=== PATIENT | female | born 1960 | race Caucasian/White ===

== ENCOUNTER → 2016-11-10 | Day surgery (SDC) | payer OTHER ==
[~2016-11-10] MED LIST: ASPIRIN325 M1 PO; ASPIRIN81 M2 PO; GLYBURIDE PO; LIPITOR20 MG PO; LISINOPRIL10 MG PO; MICRONASE5 M1 PO; MULTI VITAMIN1 EACH PO; PRINIVIL10 MG PO
--- NOTE | ~2016-11-10 | OR ---
Unit #: [id number] #: [id number] Patient: RUSSELL PATTERSON [id number] [address] [place], [place] [address] [id number] MR#: [id number] NAME: RUSSELL PATTERSON. ROOM: Date of Procedure: 11/10/2016 Admission Date: 11/10/2016 Surgeon: Tirso Garvey M.D. : 1960 Attending Physician: Tirso Garvey M.D. Primary Care Physician: Ervin Burch M.D. OPERATIVE REPORT PRIMARY CARE PHYSICIAN Ervin Burch M.D. PREOPERATIVE DIAGNOSES The patient has come for surveillance colonoscopy. She had high-grade dysplasia and cecal polyp that were removed about 6 to 8 months ago. PROCEDURES PERFORMED Colonoscopy and polypectomy. POSTOPERATIVE DIAGNOSES A diminutive polyp in the rectum, which was removed using snare polypectomy. Otherwise, examination was normal all the way up to cecum and terminal ileum. The quality of the prep was excellent. The rectal polyp was removed and sent for histology. RECOMMENDATIONS Follow up the results of polyp histology and repeat colonoscopy in 5 years. SEDATION USED MAC. DESCRIPTION OF PROCEDURE Following detailed explanation of the potential risks and complications of a colonoscopy, namely perforation, bleeding, and complications related to sedation, the patient was brought to GI lab and laid in the left lateral decubitus position. A digital rectal examination was performed, which was normal. Lubricated tip of the Olympus video colonoscope was inserted through the anus and advanced under direct vision. The scope was advanced and passed up to sigmoid into descending colon. No diverticula were seen in this area. The scope tip was then navigated all the way up to cecum with visualization of the ileocecal valve and the appendiceal orifice. Preparation was excellent with good visualization and photodocumentation was obtained. Last several inches of the terminal ileum also visualized after intubation of the ileocecal valve and appeared normal. Successive segments of the colonic mucosa were examined upon withdrawal. Careful attention was paid to the entire cecal mucosa and the latter appeared completely normal. No polyps were seen on withdrawal. The patient did not have any diverticulosis or hemorrhoids; however, a single sessile polyp in the rectum which was about 4 to 5 mm in size. It was removed using snare polypectomy. It was retrieved and sent for histology. No additional polyps noted. The scope was then withdrawn. The patient Unit #: [id number] #: [id number] Patient: RUSSELL PATTERSON returned to recovery area. She tolerated the procedure without any postprocedure complications. Dictated by... Mile Torres/gabriela TD: 11/10/2016 22:03 JOB #: [id number] OPERATIVE REPORT X Tirso Garvey MD X PROCEDURE OPERATIVE NOTE
== END | disposition home or self-care (01) ==
LOC: COPS 06:16
DX: Z12.11 Encounter for screening for malignant neoplasm of colon (principal); K62.1 Rectal polyp; I10 Essential (primary) hypertension; F17.210 Nicotine dependence, cigarettes, uncomplicated; Z90.49 Acquired absence of other specified parts of digestive tract; Z90.89 Acquired absence of other organs; Z98.890 Other specified postprocedural states; Z88.6 Allergy status to analgesic agent; Z79.82 Long term (current) use of aspirin; Z79.899 Other long term (current) drug therapy; Z86.010 Personal history of colon polyps; Z80.0 Family history of malignant neoplasm of digestive organs
CPT/HCPCS: 82947; 88305